=== PATIENT | male | born 1945 | race Caucasian/White ===

== ENCOUNTER 2017-03-27 06:48 | Day surgery (SDC) ==
[2017-03-27] MEDS ORDERED: DIPRIVAN 20 ML VIAL IVP ONE (08:20)
[2017-03-27] MEDS ORDERED: VERSED ONE (08:20)
[2017-03-27 10:25] VITALS: BP 131/72; TEMP 97.2
--- NOTE | 2017-03-27 13:18 | OP ---
PROCEDURE: COLONOSCOPY TO THE CECUM WITH SNARE POLYPECTOMY AND BIOPSY. ENDOSCOPIST: Murray ROCHA M.D. INDICATION: HISTORY OF ADENOMATOUS POLYPS, LAST EXAM THREE YEARS PRIOR TO THIS DATE. INSTRUMENT: Apiphany-190. MEDICATION: PER ANESTHESIA. PROCEDURE: The patient was positioned for colonoscopy. The digital rectal exam was negative. The colonoscope was inserted through the anus and advanced under direct vision to the cecum. The cecum was identified using the ileocecal valve and the appendiceal orifice as landmarks. The scope was slowly withdrawn through an adequately prepped colon. In the cecum, a 2 mm polyp is removed using cold biopsy forceps. We removed three (3) small polyps in the transverse colon. All were 4 to 5 mm in size, all removed using cold snare polypectomy. The retroflex exam was otherwise normal. The patient tolerated the procedure without immediate complication. Withdrawal time 8 minutes and 27 seconds. PLAN: 1. Review his pathology. 2. Suggest repeat colonoscopy for surveillance in 3 years. 3. He may resume his Plavix in the morning. CC: DR. DANIEL HERNANDEZ
== END 2017-03-27 09:35 | disposition home or self-care (01) ==
LOC: SURG 06:48
PROVIDERS: ATTEND Internal Medicine Gastroenterology
DX: Z09 Encounter for follow-up examination after completed treatment for conditions other than malignant neoplasm (principal); Z86.010 Personal history of colon polyps; D12.0 Benign neoplasm of cecum; D12.3 Benign neoplasm of transverse colon

== ENCOUNTER 2017-10-04 13:10 | Outpatient (CLI) | payer OTHER ==
--- NOTE | 2017-10-04 14:38 | US ---
EXAM: Ultrasound carotid Doppler 10/04/2017 HISTORY: Dizziness. Hypertension COMPARISON: 09/30/2010 FINDINGS: Antegrade flow of the carotid and vertebral arteries. Bilateral atherosclerotic plaque at the level of the carotid bulbs and proximal internal carotid ayla kaity. Peak systolic velocity distal right common carotid artery 50 cm/sec, right internal carotid artery 90 cm/sec. This ratio is 1.6. Peak systolic velocity left common carotid artery 70 cm/sec, left inter nal carotid artery 70 cm/sec. This ratio is 1.0. IMPRESSION: 1. Bilateral internal carotid stenosis appears to be less than 50%. 2. Heterogeneous bilateral atherosclerotic plaque 3. Antegrade flow within the right and left vertebral artery.
--- NOTE | 2017-10-04 15:11 | MRI ---
EXAM: MRI brain without IV contrast. DATE: 10/04/2017. HISTORY: Hypertension, forgetfulness, dizziness. TECHNIQUE: Sagittal T1W, axial T2W, axial FLAIR, axial T1W, axial DWI, and coronal T2W GRE sequences of the brain were obtained using 1.2 Shanell magnet. No IV contrast. COMPARISON: MRI brain 13 January 2012. FINDINGS: The lateral ventricles, temporal tips, third ventricle, Sylvian fissures and many cerebral sulci are somewhat prominent due to involutional change. No midline shift, mass effect or abnormal extra-axial fluid collection is apparent. No acute infarct, acute hemorrhage or neoplasm is identifi ed. Prominent Virchow-Seth spaces are suspected within each basal ganglia, tiny lacunar infarcts mi . ht look similar. Minimal T2W/FLAIR hyperintensity is observed in the white matter abutting the an terior horn and body of each lateral ventricle. A few 1-2.5 mm, T2W/FLAIR bright foci are demonstrat ed in the subcortical white matter. The oakley - white matter differentiation is normal. The 7th/8th cranial nerve complexes, cerebellopontine angles, brainstem, and visible cervical spinal cord are nor mal. Several 1-2 mm T2W bright, T1W dark foci within each hippocampus may represent tiny neuroglial cyst vs Virchow-Seth spaces. There is no cerebellar tonsillar ectopia. The pituitary gland is norm al in size and signal. Corpus callosum is normal in size and configuration. Flow voids are present in the major intracranial arteries and in the dural venous sinuses. No aneurysm, AVM or dural venous sinus thrombosis is apparent. No orbit abnormality is identified. A few right and most left mastoi d air cells have T2W bright, T1W intermediate signal. There is opacification of a single anterior le ft ethmoid air cell, and mucosal thickening within several ethmoid air cells. No neck mass or lympha denopathy is detected. No calvarial neoplasm or acute fracture is evident. IMPRESSIONS: 1. No acute infarct, hemorrhage, neoplasm or hydrocephalus. 2. Virchow-Seth spaces and/or tiny infarcts in each basal ganglia. 3. Minor cerebral and brainstem atrophy. 4. Minimal cerebral small vessel disease. 5. Minor ethmoid sinus mucosal disease. 6. Minor right and marked left mastoid air cell disease.
== END 2017-10-04 13:11 | disposition home or self-care (01) ==
LOC: RAD 13:10
PROVIDERS: ATTEND Internal Medicine
DX: I10 Essential (primary) hypertension (principal); G45.9 Transient cerebral ischemic attack, unspecified; R41.3 Other amnesia; R42 Dizziness and giddiness

== ENCOUNTER 2017-12-06 09:16 | Outpatient (CLI) | payer OTHER | END 2017-12-06 09:17 | disposition home or self-care (01) | LOC: LAB 09:16 | PROVIDERS: ATTEND Psychiatry & Neurology Neurology | DX: R40.4 Transient alteration of awareness (principal); E78.5 Hyperlipidemia, unspecified ==

== ENCOUNTER 2018-05-21 09:53 | Emergency (ER) ==
[2018-05-21 09:57] VITALS: BP 157/83; TEMP 97.3; BMI 31.3
--- NOTE | 2018-05-21 10:08 | ED.PDOC ---
General ED Provider: Dr. DANITA WARE Chief Complaint: Finger Laceration Stated Complaint: FINGER LACERATION Time Seen by Physician: 10:00 Mode of Arrival: Walk-In Information Source: Patient Exam Limitations: No limitations Primary Care Provider: JT SANCHEZ Nursing and Triage Documentation Reviewed and Agree: Yes Does patient meet sepsis criteria?: Yes If yes, has appropriate treatment been initiated?: No System Inflammatory Response Syndrome: Not Applicable Sepsis Protocol: For patient's 13 years and over: Temp is 96.8 and below OR 101 and greater Pulse >90 BPM Resp >20/minute Acutely Altered Mental Status Are patient's symptoms suggestive of a new infection, such as: -Pneumonia -Skin, Soft Tissue -Endocarditis -UTI -Bone, Joint Infection -Implantable Device -Acute Abdominal Infection -Wound Infection -Meningitis -Blood Stream Catheter Infection -Unknown Skin Complaint Exam - Lac/Torso/Upper Ext. Complaint/Exam Location of Injury: Right (index finger see photos) Mechanism of Injury: Laceration Onset/Duration: 16 hours ago Symptoms Are: Still present Initial Severity: Mild Current Severity: Mild Aggravating: Movement Alleviating: Compression Associated Signs and Symptoms: Denies: Fever, Chills, Erythema, Numbness, Tingling Differential Diagnoses: Laceration Review of Systems - Review Of Systems Constitutional: Reports: No symptoms Eyes: Reports: No symptoms Ears, Nose, Mouth, Throat: Reports: No symptoms Respiratory: Reports: No symptoms Cardiac: Reports: No symptoms GI: Reports: No symptoms : Reports: No symptoms Musculoskeletal: Reports: No symptoms Skin: Reports: Other (laceration of the finger ) Neurological: Reports: No symptoms Endocrine: Reports: No symptoms Hematologic/Lymphatic: Reports: No symptoms All Other Systems: Reviewed and Negative Past Medical History - Past Medical History Previously Healthy: Yes Endocrine: Reports: None Cardiovascular: Reports: None Respiratory: Reports: None Hematological: Reports: None Gastrointestinal: Reports: None Genitourinary: Reports: None Neuro/Psych: Reports: None Musculoskeletal: Reports: None Cancer: Reports: None - Surgical History General Surgical History: Reports: None - Family History Family History: Reports: None - Social History Smoking Status: Former smoker Hx Substance Use: No Alcohol Screening: None - Immunizations Tetanus Shot up to Date: No (unknown) Physical Exam - Physical Exam Appearance: Well-appearing, No pain distress, Well-nourished Eyes: NIEVES, EOMI, Conjunctiva clear ENT: Ears normal, Nose normal, Oropharynx normal Respiratory: Airway patent, Breath sounds clear, Breath sounds equal, Respirations nonlabored Cardiovascular: RRR, Pulses normal, No rub, No murmur GI/: Soft, Nontender, No masses, Bowel sounds normal, No Organomegaly Musculoskeletal: Normal strength, No edema (1cm laceration across the index finger 1mm deep no F/B ) Skin: Warm, Dry, Normal color Neurological: Sensation intact, Motor intact, Reflexes intact, Cranial nerves intact, Alert, Oriented Psychiatric: Affect appropriate, Mood appropriate Critical Care Note - Critical Care Note Total Time (mins): 0 Course - Course Vital Signs: Temp Pulse Resp BP Pulse Ox 05/21/18 09:53 97.3 F L 70 16 157/83 H 95 Departure - Departure Time of Disposition: 10:08 (SEE PHOTOS. INJURY 16 HOURS OLD WAS NOT SUTURED ) Disposition: HOME SELF-CARE Discharge Problem: Laceration of finger Instructions: Finger Laceration (ED) Condition: Good Pt referred to PMD for follow-up: Yes IPMP verified?: No Additional Instructions: Please call your Family Physician as soon as possible to schedule a follow-up appointment. Allergies/Adverse Reactions: Allergies Penicillins Adverse Reaction (Verified 05/21/18 09:56) Home Medications: Ambulatory Orders Clopidogrel Bisulfate [Plavix] 75 mg PO DAILY 02/09/15 Hydrocodone/Acetaminophen [Hydrocodon-Acetaminoph 7.5-325] 1 tab PO BID PRN Rosuvastatin Calcium [Crestor] 20 mg PO QPM 02/09/15 Tamsulosin HCl [Flomax] 0.4 mg PO DAILY 02/09/15
[2018-05-21] MEDS ORDERED: TENIVAC IM ONE (10:10)
== END 2018-05-21 10:48 | disposition home or self-care (01) ==
LOC: ED 09:53
DX: S61.210A Laceration without foreign body of right index finger without damage to nail, initial encounter (principal); W45.8XXA Other foreign body or object entering through skin, initial encounter
CPT/HCPCS: 90471; 90714; 99283